=== PATIENT | male | born 1940 | race Caucasian/White ===

== ENCOUNTER 2021-07-29 11:28 | Emergency (ER) | payer BC ==
[2021-07-29 12:34] LABS: HEMOGLOBIN 12.4 gm/dl (14.0-17.5); RED BLOOD COUNT 3.94 M/UL (4.20-5.50); WHITE BLOOD COUNT 9.3 K/UL (4.5-11.0)
[2021-07-29 13:00] LABS: BUN/CREATININE RATIO 19 (0-10)
[2021-07-29] MEDS ORDERED: HYDROCODON-ACE1 EAC4 PO (14:59)
== END 2021-07-29 15:04 | disposition home or self-care (01) ==
LOC: ER1 11:28
PROVIDERS: Nurse Practitioner
DX: M54.50 Low back pain, unspecified (principal); G89.29 Other chronic pain; I10 Essential (primary) hypertension; Z79.82 Long term (current) use of aspirin; Z88.2 Allergy status to sulfonamides; Z85.46 Personal history of malignant neoplasm of prostate
CPT/HCPCS: 36415; 71045; 80053; 81001; 82550; 82553; 83874; 84484; 85025; 93005; 96374; 96375; 99284; J1885; J2270

== ENCOUNTER → 2021-08-16 | Outpatient (CLI) | payer BC ==
[~2021-08-16] MED LIST: HYDROCODON-ACE1 EAC4 PO
== END ==
LOC: NM 09:30
DX: C61 Malignant neoplasm of prostate (principal)
CPT/HCPCS: 78306; A9503

== ENCOUNTER → 2021-09-01 | Outpatient (CLI) | payer BC ==
[2021-09-01 17:31] LABS: CORONAVIRUS HKU1 Not Detected (Not Detectd); CORONAVIRUS NL63 Not Detected (Not Detectd); CORONAVIRUS OC43 Not Detected (Not Detectd); CORONOAVIRUS 229E Not Detected (Not Detectd); HUMAN METAPNEUMOVIRUS Not Detected (Not Detectd); HUMAN RHINOVIRUS/ENTEROVIRUS Not Detected (Not Detectd); INFLUENZA A Not Detected (Not Detectd); INFLUENZA B Not Detected (Not Detectd); PARAINFLUENZA VIRUS 1 Not Detected (Not Detectd)
[2021-09-01 17:32] LABS: BORDETELLA PARAPERTUSSIS Not Detected (Not Detectd); BORDETELLA PERTUSSIS Not Detected (Not Detectd); CHLAMYDIA PNEUMONIAE Not Detected (Not Detectd); MYCOPLASMA PNEUMONIAE Not Detected (Not Detectd); PARAINFLUENZA VIRUS 2 Not Detected (Not Detectd); PARAINFLUENZA VIRUS 3 Not Detected (Not Detectd); PARAINFLUENZA VIRUS 4 Not Detected (Not Detectd); RESPIRATORY SYNCYTIAL VIRUS Not Detected (Not Detectd)
[2021-09-01 19:16] LABS: SARS-CoV-2 NOT DETECTED (Not Detectd)
== END ==
LOC: RAD 17:05
PROVIDERS: Physician Assistant
DX: R05.9 Cough, unspecified (principal); Z20.822 Contact with and (suspected) exposure to COVID-19
CPT/HCPCS: 71046; 87633

== ENCOUNTER → 2022-03-27 | Outpatient (CLI) | payer BC | LOC: NM 03-21 09:10 | DX: R93.7 Abnormal findings on diagnostic imaging of other parts of musculoskeletal system (principal); C61 Malignant neoplasm of prostate | CPT/HCPCS: 78306; A9503 ==

== ENCOUNTER → 2022-03-29 | Outpatient (CLI) | payer BC | LOC: CT 08:58 | DX: C61 Malignant neoplasm of prostate (principal); R93.7 Abnormal findings on diagnostic imaging of other parts of musculoskeletal system | CPT/HCPCS: 71260; Q9967 ==

== ENCOUNTER → 2022-04-28 | Outpatient (CLI) | payer BC | LOC: KOH-I 15:01 | DX: B97.21 SARS-associated coronavirus as the cause of diseases classified elsewhere (principal) | CPT/HCPCS: 71046 ==